=== PATIENT | female | born 1985 | race Asian ===

== ENCOUNTER 2024-04-26 07:53 | Outpatient (CLI) | payer BC | END 2024-04-26 07:54 | disposition home or self-care (01) | LOC: BICMAMMO 07:53 | PROVIDERS: ATTEND Family Medicine | DX: Z12.31 Encounter for screening mammogram for malignant neoplasm of breast (principal); N63.22 Unspecified lump in the left breast, upper inner quadrant | CPT/HCPCS: 77063; 77067 ==

== ENCOUNTER 2024-05-03 08:00 | Outpatient (CLI) | payer BC | END 2024-05-03 08:01 | disposition home or self-care (01) | LOC: BICMAMMO 08:00 | PROVIDERS: ATTEND Family Medicine | DX: N63.22 Unspecified lump in the left breast, upper inner quadrant (principal) | CPT/HCPCS: G0279 ==